=== PATIENT | male | born 1950 | race Caucasian/White ===

== ENCOUNTER 2017-02-25 09:51 | Day surgery (SDC) | payer OTHER ==
--- NOTE | 2017-02-21 00:37 | GHP ---
[f rep st] PREOP HISTORY AND PHYSICAL DATE OF ADMISSION: 02/25/2017 COMPLAINT: Left knee pain. HISTORY OF PRESENT ILLNESS: The patient is a 66-year-old male, who was walking on a treadmill when he felt a pop within his knee. He has had a great deal of pain afterwards, trying to bear weight. It has been inhibiting his ability to exercise and do activities of daily living. ALLERGIES: Include penicillin. CURRENT MEDICATION: Include amlodipine, low-dose aspirin, hydrochlorothiazide, lisinopril, Prilosec , and sertraline. PRIOR MEDICAL PROBLEMS: Include asthma, high cholesterol, reflux, gout, hepatitis, hypertension and sleep apnea. PRIOR SURGERY: Includes a cholecystectomy and a vasectomy. SOCIAL HISTORY: He is a former smoker, and consumes no alcohol. PHYSICAL EXAM: HEENT: Pupils equal, round, and reactive to light. CHEST: Clear to auscultation. HEART: Regular rate and rhythm. ABDOMEN: Soft and nontender. EXTREMITIES: His left knee has a moderate effusion noted to the knee. He has tenderness to the medial joint line but not the lateral joint line. The knee is stable throughout. ASSESSMENT AND PLAN: Patient is status post left knee medial meniscal tear. Risks and benefits of surgery, as always, were discussed with the patient. He is willing to proceed. He will therefore b e brought to the operating room, where he will undergo a left knee arthroscopy. /[id number]/MODL
--- NOTE | 2017-02-25 07:15 | PDHPUP ---
History & Physical Update H&P update statement: This history and physical update is based on an assessment of the patient which was completed after admission or registration (within 24 hours), but prior to the surgery/procedure. H&P update: H&P reviewed & patient examined, no change in patient's condition since H&P completed
[~2017-02-25 09:51] MED LIST: BUPIVACAINE/EPI 0.5% 30 ML SDV ONE; VANCOMYCIN 2 GM in D5W 500 ML IV ONE; VANCOMYCIN PHARMACY TO DOSE MISC ONE
[2017-02-25] MEDS ORDERED: LR 1,000 ML IV ONE (10:18)
[2017-02-25] MEDS ORDERED: LIDOCAINE 1% 2 ML INJ ID PRN (10:18)
[2017-02-25] MEDS ORDERED: MIDAZOLAM 2 MG/2 ML VIAL IVP ONE (11:01)
--- NOTE | 2017-02-25 11:01 | PDANEPAE ---
ANE History of Present Illness 66 year old male w/ PMHx of HTN, FILIBERTO (on CPAP), Cervical stenosis (w/ right arm weakness), previous Hep. C, GERD and obesity presents for knee arthroscopy w meniscal repair. ANE Past Medical History - Cardiovascular History Hx Hypertension: Yes Hx Arrhythmias: No Hx Chest Pain: No Hx Coronary Artery / Peripheral Vascular Disease: No Hx CHF / Valvular Disease: No Hx Palpitations: No Cardiovascular History Comment: HTN well controlled - Pulmonary History Hx COPD: No Hx Asthma/Reactive Airway Disease: Yes Hx Recent Upper Respiratory Infection: No Hx Oxygen in Use at Home: No Hx Sleep Apnea: Yes Sleep Apnea Screening Result - Last Documented: Positive Pulmonary History Comment: rare use of Albuterol- w/ URI. FILIBERTO uses CPAP. ` - Neurologic History Hx Cerebrovascular Accident: No Hx Seizures: No Hx Dementia: No - Endocrine History Hx Diabetes: No Obesity: yes - Renal History Hx Renal Disorders: No - Liver History Hx Hepatic Disorders: No - Neurological & Psychiatric Hx Hx Neurological and Psychiatric Disorders: Yes Neurological / Psychiatric History Comment: cervical stenosis- weakness R arm. anxiety-on RX - Cancer History Hx Cancer: No - Congenital Disorder History Hx Congenital Disorders: No - GI History Hx Gastrointestinal Disorders: Yes Gastrointestinal History Comment: GERD - Other Health History Other Health History: L knee meniscal tear - Chronic Pain History Chronic Pain: Yes (L knee) - Surgical History Prior Surgeries: tonsillectomy age 5. varicocelectomy 70's. hydrocelectomy. vocal cord polyp excision. Lap jaylen converted to open ANE Review of Systems - Exercise capacity METS (RN): 4 METS ANE Patient History - Allergies Allergies/Adverse Reactions: Penicillins Allergy (Verified 02/17/17 11:43) Rash - Home Medications Home medications: home medication list seen and reviewed Home Medications: Albuterol Sulfate 3 ml IH PRN 01/05/12 [Last Taken 01/28/17] Sertraline HCl [Zoloft 20mg/ml oral liquid] 50 mg PO 01/05/12 [Last Taken 06:00] Amlodipine Besylate 02/17/17 [Last Taken 02/25/17 06:00] Aspirin EC 81 mg (*) 02/17/17 [Last Taken 02/16/17 20:00] LISINOPRIL/HYDROCHLOROTHIAZIDE 02/17/17 [Last Taken 02/24/17 07:00] Lisinopril 02/17/17 [Last Taken 02/25/17 06:00] PRILOSEC 02/17/17 [Last Taken 02/24/17 20:00] Wellbutrin Sr 02/17/17 [Last Taken 02/25/17 06:00] ZYRTEC 02/17/17 [Last Taken 02/25/17 06:00] - NPO status NPO Since - Liquids (Date): 02/24/17 NPO Since - Liquids (Time): 20:20 NPO Since - Solids (Date): 02/24/17 NPO Since - Solids (Time): 20:00 - Anes Hx Anes Hx: no prior problems - Smoking Hx Smoking Status: Former smoker - Family Anes Hx Family Anes Hx: neg - N/A ANE Labs/Vital Signs - Vital Signs Vital Signs: reviewed preoperatively; see RN documention for details Blood Pressure: 160/84 Heart Rate: 86 Respiratory Rate: 20 O2 Sat (%): 95 Height: 175.26 cm Weight: 127.006 kg ANE Physical Exam - Airway Neck exam: FROM Mallampati Score: Class 2 Mouth exam: poor dentition - Pulmonary Pulmonary: no respiratory distress - Cardiovascular Cardiovascular: regular rate and rhythym - ASA Status ASA Status: III ANE Anesthesia Plan Anesthesia Plan: general endotracheal anesthesia, GA w LMA
[2017-02-25] MEDS ORDERED: fentaNYL 100 MCG/2 ML INJ ONE ×4 (12:31→14:21)
[2017-02-25] MEDS ORDERED: PROPOFOL 200 MG/20 ML VIAL ONE ×2 (12:31→13:04)
[2017-02-25] MEDS ORDERED: DEXAMETHASONE 4 MG/ML VIAL ONE (12:47)
[2017-02-25] MEDS ORDERED: ONDANSETRON 4 MG/2 ML VIAL ONE (12:47)
[2017-02-25] MEDS ORDERED: NALOXONE HCL 0.4 MG/ML INJ IVP PRN ×2 (12:56→15:33)
[2017-02-25] MEDS ORDERED: OXYCODONE/APAP 5/325 TAB PO PRN (12:56)
[2017-02-25] MEDS ORDERED: ONDANSETRON 4 MG/2 ML VIAL IVP PRN (12:56)
--- NOTE | 2017-02-25 13:36 | POSTOPPROG ---
Post Op Note Date of Operation: 02/25/17 Surgeon: Italia Lal Anesthesia: LMA Pre-op Diagnosis: l mmt/lmt/oa Procedure: l knee scope with partial med/lat menisectomy with chondroplasty Inf/Abcess present in the surg proc area at time of surgery?: No Depth: Deep Incisional (Fascial) EBL: Minimal
[2017-02-25] MEDS ORDERED: PHARMACY PAIN CONSULT 1 EA MISC PRN (13:37)
[2017-02-25] MEDS ORDERED: PROMETHAZINE HCL 25 MG SUPPR PR PRN (13:37)
[2017-02-25] MEDS ORDERED: MAGNESIUM HYDROXIDE 30 ML UDCUP PO PRN (13:37)
[2017-02-25] MEDS ORDERED: LACTULOSE 20 GM/30 ML UDCUP PO PRN (13:37)
[2017-02-25] MEDS ORDERED: diphenhydrAMINE 25 MG CAP PO PRN (13:37)
[2017-02-25] MEDS ORDERED: CYCLOBENZAPRINE 10 MG TAB PO PRN (13:37)
[2017-02-25] MEDS ORDERED: BISACODYL 10 MG SUPP PR PRN (13:37)
[2017-02-25] MEDS ORDERED: TEMAZEPAM 15 MG CAP PO PRN (13:37)
[2017-02-25] MEDS ORDERED: oxyCODONE IR 5 MG TAB PO PRN (13:37)
[2017-02-25] MEDS ORDERED: PROMETHAZINE HCL 25 MG/ML INJ IVP PRN (13:37)
[2017-02-25] MEDS ORDERED: DIPHENOXYLATE/ATROPINE LOMOTIL 1 TAB PO PRN (13:37)
[2017-02-25] MEDS ORDERED: POLYETHYLENE GLYCOL 3350 17 GM PKT PO PRN (13:37)
[2017-02-25] MEDS ORDERED: METOCLOPRAMIDE 10 MG/2 ML VIAL IVP PRN (13:37)
[2017-02-25] MEDS: fentaNYL 100 MCG/2 ML INJ IVP PRN ×4 (13:56→14:37)
[2017-02-25] MEDS ORDERED: LR 1,000 ML IV SCH (14:00)
--- NOTE | 2017-02-25 15:07 | GOP ---
[f rep st] OPERATIVE REPORT DATE OF OPERATION: 02/25/2017 SURGEON: Italia Lal MD ANESTHESIA: LMA. PREOPERATIVE DIAGNOSIS: Left knee medial meniscal tear with osteoarthritis. POSTOPERATIVE DIAGNOSIS: Left knee medial meniscal tear with osteoarthritis, with lateral meniscal tear, grade 3-4 chondral changes to the patella, and grade 3 chondral changes to the medial compartment. PROCEDURE PERFORMED: Left knee arthroscopy with partial medial and partial lateral meniscectomy, with chondroplasty of the medial and patellofemoral compartments. FINDINGS: INDICATIONS: This is a 66-year-old male with a several-month history of left knee pain worsening with use and with time after a twisting incident across it. He had no significant pain prior to this. MRI exams revealed medial meniscal tear with some osteoarthritic changes. He wishes to have surgery in order to resolve the problem. DESCRIPTION OF PROCEDURE: Patient brought to the operating room after the left side had been identified as the correct side by the patient, nurse and physician. Once in the operating room, he was placed under general anesthesia using an LMA. Once asleep, a tourniquet placed around the upper portion of the left thigh, and both legs were placed in appropriate leg gutierrez. Left lower extremity was then sterilely prepped and draped in the usual fashion using a GSI solution. Once prepped and draped, limb was exsanguinated, tourniquet inflated to 300 mmHg. Incision was made in the superomedial portion of the knee with an outflow trocar induced without difficulty. A 2nd incision was made lateral to the patellar tendon, between the inferior pole of the patella and the tibial plateau, with a camera introduced without difficulty. Inspection of the joint revealed no loose bodies in the suprapatellar pouch, in the medial and lateral gutter. There were noted to be grade 3-4 chondral changes to the patella with no significant chondral changes noted of the trochlea. Further inspection revealed the ACL ligament to be intact, now with an abundant amount of synovium in the anterior portion, ending in a tethered Hoffa pad. Inspection of the medial compartment revealed tearing of the posterior horn of the medial meniscus extending all the way toward the root, along with grade 3 chondral changes to the femur and tibia. Inspection of the lateral compartment revealed some tearing at the root of the lateral meniscus with minor grade 2 chondral changes noted. Therefore, a third incision was made medial to the patellar tendon between the inferior pole of the patella and the tibial plateau, and alternating, using a straight biter and then a 4.0 mm smooth shaver was used to debride both tears of the medial and lateral meniscus , remove the loose fragments from the medial compartment and patellofemoral compartment, and remove the abundant amount of synovium at the anterior portion of the knee. Once finished, all instruments were removed from the knee with 30 cc of Marcaine infused in the knee joint. The 3 portal sites were closed using 3-0 nylon suture in a [id number] type stitch. The wounds were dressed with Xeroform, 4 x 4, wrapped in Webril. Tourniquet was deflated at 27 minutes. Leg was completely undraped in the operating room, taken out of its leg gutierrez and tourniquet was removed from the thigh, and an Chance wrap placed around the knee. The right leg was taken out of its leg gutierrez. He was placed supine. He was woken up, extubated, transferred onto a stretcher, and sent to recovery room in good condition. TOURNIQUET TIME: 27 minutes. /[id number]/MODL MTDD
[2017-02-25] MEDS ORDERED: oxyCODONE IR 5 MG TAB ONE (15:18)
--- NOTE | 2017-02-25 17:00 | POSTANESTH ---
Post Anesthetic Evaluation Cardiovascular Status: Normal, Stable Respiratory Status: Normal, Stable Level of Consciousness/Mental Status: Can Participate in Eval Pain Control: Adequate, Prn Tx Ordered Nausea/Vomiting Control: Adequate, Prn Tx Ordered Complications Possibly Related to Anesthesia: None Noted
[2017-02-25] MEDS ORDERED: ACETAMINOPHEN 325 MG TAB PO SCH (18:00)
[2017-02-25 18:36] VITALS: BP 105/61; PULSE 78; RESP 17; TEMP 98.1; O2SAT 91
[2017-02-25] MEDS ORDERED: SENNOSIDES/DOCUSATE SODIUM TAB PO SCH (21:00)
[2017-02-25] MEDS ORDERED: FAMOTIDINE 20 MG TAB PO SCH (21:00)
[2017-02-25] MEDS ORDERED: ASPIRIN 325 MG TAB PO SCH (21:00)
== END 2017-02-25 18:17 | disposition home or self-care (01) ==
LOC: FSGY 09:51
PROVIDERS: ATTEND Orthopaedic Surgery
PROC: 0SBD4ZZ Excision of Left Knee Joint, Percutaneous Endoscopic Approach (ICD-10-PCS; principal; 2017-02-25 11:30)
DX: S83.242A Other tear of medial meniscus, current injury, left knee, initial encounter (principal); S83.282A Other tear of lateral meniscus, current injury, left knee, initial encounter; M24.10 Other articular cartilage disorders, unspecified site; M17.12 Unilateral primary osteoarthritis, left knee; I10 Essential (primary) hypertension; K21.9 Gastro-esophageal reflux disease without esophagitis; J45.909 Unspecified asthma, uncomplicated; G47.33 Obstructive sleep apnea (adult) (pediatric); M10.9 Gout, unspecified; Z87.891 Personal history of nicotine dependence; Z88.0 Allergy status to penicillin; X50.1XXA Overexertion from prolonged static or awkward postures, initial encounter; Y93.A1 Activity, exercise machines primarily for cardiorespiratory conditioning
CPT/HCPCS: J1100; J2250; J2405; J2704; J3010; J3370

== ENCOUNTER → 2017-05-16 | Outpatient (CLI) | payer OTHER | LOC: CIMAGING 09:33 → EDSTATUS 09:41 → CIMAGING 09:42 | PROVIDERS: ATTEND Family Medicine | DX: J45.901 Unspecified asthma with (acute) exacerbation (principal); I27.20 Pulmonary hypertension, unspecified | CPT/HCPCS: 71020-PO ==

== ENCOUNTER → 2017-06-30 | Outpatient (CLI) | payer OTHER | LOC: BRMIMAGING 11:07 | PROVIDERS: ATTEND Internal Medicine Cardiovascular Disease | DX: I50.9 Heart failure, unspecified (principal); I10 Essential (primary) hypertension ==

== ENCOUNTER → 2017-07-23 | Outpatient (CLI) | payer OTHER, MEDICARE | LOC: BHFA 13:00 | PROVIDERS: ATTEND Internal Medicine Cardiovascular Disease | DX: I50.9 Heart failure, unspecified (principal); I10 Essential (primary) hypertension | CPT/HCPCS: 78452; 93017; A9500; J2785 ==

== ENCOUNTER 2018-03-18 17:01 | Inpatient (IN) | payer OTHER, MEDICARE ==
[2018-03-18] MEDS ORDERED: methylPREDNISolone SOD SUCC 125 MG/2 ML VIAL IVP ONE ×2 (17:12→17:17)
[2018-03-18] MEDS ORDERED: IPRATROPIUM/ALBUTEROL 3 ML DEYVIAL IH ONE ×2 (17:12→19:22)
[2018-03-18] MEDS ORDERED: AZITHROMYCIN IV 500 MG in NS 250 ML IV ONE (17:14)
[2018-03-18] MEDS ORDERED: NS 1,000 ML IV ONE (17:14)
--- NOTE | 2018-03-18 17:21 | EDPHY ---
H & P Stated Complaint: sob and fever today Time Seen by Provider: 03/18/18 17:07 HPI/ROS: CHIEF COMPLAINT: Fever and difficulty breathing History by patient HISTORY OF PRESENT ILLNESS: 67-year-old man with a history of hypertension and asthma presents complaining of 24 hr of fever and cough. Patient had a temperature up to 103 at home. He has been coughing up yellow sputum and today began wheezing. He has not tried using his inhalers. He gets short of breath whenever he tries to do anything like walk. He has some associated pleuritic chest pain. He has had no nausea or vomiting. His last steroid use was about a month ago. He was exposed to a grandchild with cold. Patient quit smoking 20 years ago. He denies any leg pain or swelling. REVIEW OF SYSTEMS: Limited to the acuity of the patient's presentation Source: Patient - Medical/Surgical History Hx Asthma: Yes Hx Chronic Respiratory Disease: No Hx Diabetes: No Hx Cardiac Disease: Yes Other PMH: asthma - Social History Smoking Status: Former smoker - Physical Exam Exam: General Appearance: Alert, morbidly obese, speaking 3-5 word sentences. Head: normocephalic, atraumatic Eyes: Pupils equal and round, reactive to light, no pallor or injection. Extraocular movements intact Mouth: Mucous membranes moist. Respiratory: Increased effort, lungs diffuse wheezes, no chest wall tenderness Cardiovascular: Regular rate and rhythm. S1, S2, no murmurs, gallops or rubs appreciated Gastrointestinal: Abdomen is soft and nontender, no masses, bowel sounds normal. Back: No CVA tenderness, no bony tenderness Neurological: Awake, alert and oriented x 3, no pronator drift, normal gait, no pronator drift Skin: Warm and dry, no rashes. Musculoskeletal: No deformities or tenderness. Full range of motion Extremities: 1+ bilateral pitting edema, no tenderness, DP2+ bilat Psychiatric: Patient has normal affect, there is no agitation. Constitutional: Initial Vital Signs Temperature (C) 38.4 C H 03/18/18 17:09 Heart Rate 135 H 03/18/18 17:09 Respiratory Rate 24 H 03/18/18 17:09 Blood Pressure 131/68 H 03/18/18 17:09 O2 Sat (%) 92 03/18/18 17:09 O2 Delivery Mode Room Air O2 (L/minute) 3 Allergies/Adverse Reactions: Penicillins Allergy (Verified 03/18/18 17:11) Rash Home Medications: Medication Instructions Recorded Albuterol Sulfate 3 ml IH PRN 01/05/12 Sertraline HCl [Zoloft 20mg/ml 50 mg PO 01/05/12 oral liquid] Amlodipine Besylate 02/17/17 Aspirin EC 81 mg (*) 02/17/17 LISINOPRIL/HYDROCHLOROTHIAZIDE 02/17/17 Lisinopril 02/17/17 PRILOSEC 02/17/17 Wellbutrin Sr 02/17/17 ZYRTEC 02/17/17 Medical Decision Making - Diagnostics EKG Interpretation: Sinus tachycardia at a rate of 137 with normal axis normal intervals Q-waves in the anterior leads and diffusely flattened T-waves, both new from 2009. . Impression: Abnormal EKG. Imaging Results: Imaging Impressions Chest X-Ray 03/18/18 17:15 Impression: No pneumonia identified. ED Course/Re-evaluation: 67-year-old man with history of asthma and hypertension presents with fever and shortness of breath and meets criteria for sepsis. Patient was placed on a lieutenant firefighter, given an DuoNeb, blood cultures were obtained he was empirically started on ceftriaxone and azithromycin to cover for pneumonia. He was given a L of normal saline bolus. Labs including were drawn. Patient had an elevated lactate confirming clinical suspicion of sepsis. Patient had a little subjective improvement after 2 nebulizer treatments and his oxygen saturation improved slightly but he continued to have persistent wheezing. Portable chest x-ray showed no obvious infiltrate. Patient was given a 2nd L of normal saline. Because of the patient's EKG changes he was given 325 mg of aspirin and a troponin was added to the labs. Troponin was negative. Patient states that he had a cardiac workup sometime in the past year with [facility] including a negative stress test. I discussed the case with the hospitalist geothermal production manager. While awaiting transfer the patient developed an episode of what he described as sharp chest pain and a repeat ECG was done. This showed sinus tachycardia at a rate of 120 but is otherwise unchanged from prior. By the time I re- evaluated the patient his symptoms had resolved. Patient received a total of 30 cc/kilos of normal saline which is equal to almost 4 L and his heart rate has improved though his systolic blood pressure did come down to 106 and his oxygen saturation is 95% on 3 L oximizer mask. He continued to have some wheezes and patient was given yet another DuoNeb. Flu swab was negative. Patient did spike a fever up to 39 while in the ED and was given Tylenol. Total critical care time was 75 min exclusive of procedures and included multiple re-evaluations of the patient. - Data Points Laboratory Results: Laboratory Results 03/18/18 17:33 03/18/18 03/18/18 03/18/18 17:46 17:43 17:42 WBC RBC Hgb Hct MCV MCH MCHC RDW Plt Count MPV Neut % (Auto) Lymph % (Auto) [place] % (Auto) Eos % (Auto) Baso % (Auto) Nucleat RBC Rel Count Absolute Neuts (auto) Absolute Lymphs (auto) Absolute Monos (auto) Absolute Eos (auto) Absolute Basos (auto) Absolute Nucleated RBC Immature Gran % Immature Gran # POC Sodium 139 mEq/L mEq/L (135-145) POC Potassium 3.8 mEq/L mEq/L (3.3-5.0) POC Chloride 102.0 mEq/L mEq/L (97-110) POC Total CO2 25 mEq/L mEq/L (22-31) POC BUN 15 mg/dL mg/dL (7-23) POC Creatinine 1.0 mg/dL mg/dL (0.7-1.3) POC Glucose 143 mg/dL H mg/dL (70-100) POC Lactic Acid Michael 2.6 mmol/L H mmol/L (0.7-2.1) POC Calcium 9.4 mg/dL mg/dL (8.5-10.4) POC Total Bilirubin 0.6 mg/dL mg/dL (0.1-1.4) POC AST 20 IU/L IU/L (17-59) POC ALT 21 IU/L IU/L (21-72) POC Alk Phosphatase 77 IU/L IU/L (38-126) POC Troponin I 0.00 ng/mL ng/mL (0.00-0.08) POC Total Protein 6.9 g/dL g/dL (6.3-8.2) POC Albumin 3.7 g/dL g/dL (3.5-5.0) 03/18/18 17:33 WBC 15.69 10^3/uL H 10^3/uL (3.80-9.50) RBC 5.19 10^6/uL 10^6/uL (4.40-6.38) Hgb 12.5 g/dL L g/dL (13.7-17.5) Hct 39.1 % L % (40.0-51.0) MCV 75.3 fL L fL (81.5-99.8) MCH 24.1 pg L pg (27.9-34.1) MCHC 32.0 g/dL L g/dL (32.4-36.7) RDW 16.6 % H % (11.5-15.2) Plt Count 316 10^3/uL 10^3/uL (150-400) MPV 10.3 fL fL (8.7-11.7) Neut % (Auto) 78.6 % H % (39.3-74.2) Lymph % (Auto) 11.9 % L % (15.0-45.0) [place] % (Auto) 6.6 % % (4.5-13.0) Eos % (Auto) 1.8 % % (0.6-7.6) Baso % (Auto) 0.2 % L % (0.3-1.7) Nucleat RBC Rel Count 0.0 % % (0.0-0.2) Absolute Neuts (auto) 12.33 10^3/uL H 10^3/uL (1.70-6.50) Absolute Lymphs (auto) 1.87 10^3/uL 10^3/uL (1.00-3.00) Absolute Monos (auto) 1.04 10^3/uL H 10^3/uL (0.30-0.80) Absolute Eos (auto) 0.28 10^3/uL 10^3/uL (0.03-0.40) Absolute Basos (auto) 0.03 10^3/uL 10^3/uL (0.02-0.10) Absolute Nucleated RBC 0.00 10^3/uL 10^3/uL (0-0.01) Immature Gran % 0.9 % % (0.0-1.1) Immature Gran # 0.14 10^3/uL H 10^3/uL (0.00-0.10) POC Sodium POC Potassium POC Chloride POC Total CO2 POC BUN POC Creatinine POC Glucose POC Lactic Acid Michael POC Calcium POC Total Bilirubin POC AST POC ALT POC Alk Phosphatase POC Troponin I POC Total Protein POC Albumin Medications Given: Discontinued Medications Acetaminophen (Tylenol) 1,000 mg PO EDNOW ONE Stop: 03/18/18 18:33 Last Admin: 03/18/18 18:36 Dose: 1,000 mg Albuterol (Proventil Neb) 3 ml IH EDNOW ONE Stop: 03/18/18 17:35 Last Admin: 03/18/18 17:35 Dose: 3 ml Albuterol (Proventil Neb) 3 ml IH EDNOW ONE Stop: 03/18/18 18:12 Last Admin: 03/18/18 18:12 Dose: 3 ml Albuterol/Ipratropium (Duoneb) 3 ml IH EDNOW ONE Stop: 03/18/18 17:13 Last Admin: 03/18/18 17:15 Dose: 3 ml Albuterol/Ipratropium (Duoneb) 3 ml IH EDNOW ONE Stop: 03/18/18 19:23 Last Admin: 03/18/18 19:26 Dose: 3 ml Aspirin (Aspirin) 324 mg PO EDNOW ONE Stop: 03/18/18 17:35 Last Admin: 03/18/18 17:37 Dose: 324 mg Azithromycin 500 mg/ Sodium (Chloride) 255 mls @ 255 mls/hr IV EDNOW ONE PRN Reason: Protocol Stop: 03/18/18 18:13 Last Admin: 03/18/18 17:50 Dose: 255 mls Ceftriaxone Sodium/Dextrose (Rocephin 1 Gm (Premix)) 50 mls @ 100 mls/hr IV EDNOW ONE PRN Reason: Protocol Stop: 03/18/18 17:43 Last Admin: 03/18/18 17:35 Dose: 50 mls Sodium Chloride (Ns) 1,000 mls @ 0 mls/hr IV ONCE ONE; Wide Open PRN Reason: Protocol Stop: 03/18/18 17:15 Last Admin: 03/18/18 17:35 Dose: 1,000 mls Sodium Chloride (Ns) 3,900 mls @ 7,800 mls/hr 30 ml/kg infuse over 30 min ( 3900 ml) IV EDNOW ONE PRN Reason: Protocol Stop: 03/18/18 18:49 Last Admin: 03/18/18 19:31 Dose: 3,900 mls Methylprednisolone Sodium Succinate (Solu-Medrol) 125 mg IVP EDNOW ONE Stop: 03/18/18 17:13 Last Admin: 03/18/18 17:38 Dose: 125 mg Methylprednisolone Sodium Succinate (Solu-Medrol) 125 mg IVP EDNOW ONE Stop: 03/18/18 17:18 Last Admin: 03/18/18 17:21 Dose: Not Given Point of Care Test Results: Chemistry 03/18/18 03/18/18 17:43 17:42 POC Sodium 139 mEq/L mEq/L (135-145) POC Potassium 3.8 mEq/L mEq/L (3.3-5.0) POC Chloride 102.0 mEq/L mEq/L (97-110) POC Total CO2 25 mEq/L mEq/L (22-31) POC BUN 15 mg/dL mg/dL (7-23) POC Creatinine 1.0 mg/dL mg/dL (0.7-1.3) POC Glucose 143 mg/dL H mg/dL (70-100) POC Calcium 9.4 mg/dL mg/dL (8.5-10.4) POC Total Bilirubin 0.6 mg/dL mg/dL (0.1-1.4) POC AST 20 IU/L IU/L (17-59) POC ALT 21 IU/L IU/L (21-72) POC Alk Phosphatase 77 IU/L IU/L (38-126) POC Troponin I 0.00 ng/mL ng/mL (0.00-0.08) POC Total Protein 6.9 g/dL g/dL (6.3-8.2) POC Albumin 3.7 g/dL g/dL (3.5-5.0) Blood Gas/Lactic Acid-Venous 03/18/18 17:46 POC Lactic Acid Michael 2.6 mmol/L H mmol/L (0.7-2.1) Departure - Departure Disposition: [facility] Acute Clinical Impression: Sepsis Qualifiers: Sepsis type: sepsis due to unspecified organism Qualified Code(s): A41.9 - Sepsis, unspecified organism Acute asthma exacerbation Qualifiers: Asthma severity: moderate Asthma persistence: unspecified Qualified Code(s): J45.901 - Unspecified asthma with (acute) exacerbation Condition: Fair
[2018-03-18] MEDS ORDERED: ALBUTEROL 3 ML DEYVIAL ONE (17:31)
[2018-03-18] MEDS ORDERED: ALBUTEROL 3 ML DEYVIAL IH ONE ×2 (17:34→18:11)
[2018-03-18] MEDS ORDERED: ASPIRIN 81 MG CHEWABLE TAB PO ONE (17:34)
[2018-03-18] MEDS ORDERED: NS 3,900 ML IV ONE ×2 (18:20→21:06)
[2018-03-18] MEDS ORDERED: ACETAMINOPHEN 500 MG TAB PO ONE (18:32)
[2018-03-18 19:15] LABS: PLATELET COUNT 316 10^3/uL (150-400)
[2018-03-18] MEDS ORDERED: HYDROCODONE/APAP 5/325 TAB PO PRN (21:03)
[2018-03-18] MEDS ORDERED: ACETAMINOPHEN 325 MG TAB PO PRN (21:03)
[2018-03-18] MEDS ORDERED: ONDANSETRON DISINTEGRATING 4 MG TAB PO PRN (21:03)
[2018-03-18] MEDS ORDERED: ONDANSETRON 4 MG/2 ML VIAL IVP PRN (21:03)
[2018-03-18] MEDS ORDERED: PROMETHAZINE HCL 25 MG/ML INJ IVP PRN (21:03)
[2018-03-18] MEDS ORDERED: HYDROmorphONE/DILAUDID 1 MG/ML INJ IVP PRN (21:03)
[2018-03-18] MEDS ORDERED: CETIRIZINE 10 MG TAB PO PRN (21:10)
--- NOTE | 2018-03-18 21:47 | PDGENHP ---
History and Physical - Chief Complaint fevers, wheeze, cough - History of Present Illness 67 yo M with PMH of reportedly asthma presenting with 2 days of productive cough , fever and sinus drainage. He notes he was around his grandson who was also sick before he developed these sxs. He was having a lot of sinus drainage and yellow sputum production yesterday, today less productive but still with a lot of cough, fever to 103 and generalized malaise. He has not had much to eat or drink all day today, he has not urinated in many hours. He notes that he was having significantly more trouble breathing earlier when at urgent care and now feels a bit better though still with wheeze. He did have a sore throat that seems to have now resolved. He denies urinary issues, rash, GI complaints. He has never felt this sick in the past that he can recall. History Information - Allergies/Home Medication List Allergies/Adverse Reactions: Penicillins Allergy (Verified 03/18/18 21:11) Rash Home Medications: Albuterol Sulfate [ALBUTEROL SULFATE 1.25 MG/3 ML] 1.25 mg IH QID PRN 03/18/18 [ Last Taken 03/18/18 16:00] Albuterol [Proventil Inhaler HFA (*)] 1 - 2 puffs IH Q4H PRN 03/18/18 [Last Taken 2 Weeks Ago ~03/04/18] Aspirin EC [Aspirin EC 81 mg (*)] 81 mg PO DAILY 03/18/18 [Last Taken 03/17/18] Atorvastatin Calcium [Lipitor 10 mg (*)] 10 mg PO HS 03/18/18 [Last Taken ] Cetirizine [ZyrTEC 10 mg (*)] 10 mg PO DAILY PRN 03/18/18 [Last Taken 03/18/18] Cholecalciferol Vit D3 [Vitamin D3 (*)] 1,000 units PO DAILY 03/18/18 [Last Taken 03/18/18] Esomeprazole Magnesium [Nexium] 20 mg PO DAILY 03/18/18 [Last Taken 03/18/18] Lisinopril [Zestril 20 mg (*)] 20 mg PO HS 03/18/18 [Last Taken 03/17/18] Lisinopril/Hydrochlorothiazide [Zestoretic 20-25 mg Tablet] 1 each PO DAILY [Last Taken 03/18/18] Montelukast Sodium [Singulair 10 mg (*)] 10 mg PO HS 03/18/18 [Last Taken ] Multivitamins [Multivitamin (*)] 1 each PO DAILY 03/18/18 [Last Taken 03/18/18] Sertraline HCl [Zoloft 50mg (*)] 50 mg PO DAILY 03/18/18 [Last Taken 03/18/18] amLODIPine BESYLATE [Norvasc 10 mg (*)] 10 mg PO DAILY 03/18/18 [Last Taken ] I have personally reviewed and updated: family history, medical history, social history, surgical history - Past Medical History asthma, hypertension, hyperlipidemia Additional medical history: cervical radiculopathy - Surgical History Reports: cholecystectomy Additional surgical history: varicocele surgery. knee surgery. nasal septal reconstruction - Family History Positive for: non-pertinent - Social History Smoking Status: Former smoker (prior 60-90 pack year smoking history) Alcohol Use: Occasionally Drug Use: None Additional social history: , originally from the [place] Review of Systems Review of Systems: ROS: 10pt was reviewed & negative except for what was stated in HPI & below Physical Exam Physical Exam: Temp Pulse Resp BP Pulse Ox 37.5 C 116 H 18 129/52 H 94 03/18/18 20:09 03/18/18 20:09 03/18/18 20:09 03/18/18 20:09 03/18/18 20:09 O2 (L/minute) 3 Constitutional: obese, uncomfortable Eyes: PERRL, anicteric sclera Ears, Nose, Mouth, Throat: moist mucous membranes, hearing normal Cardiovascular: no murmur, rub, or gallop, tachycardia, edema Respiratory: reduced air movement, expiratory wheeze, respiratory distress Gastrointestinal: normoactive bowel sounds, soft, non-tender abdomen Genitourinary: no bladder tenderness Skin: warm, normal color Musculoskeletal: full muscle strength Neurologic: AAOx3 Psychiatric: interacting appropriately, not anxious, not encephalopathic Lab Data & Imaging Review 03/18/18 17:33 WBC 15.69 10^3/uL (3.80-9.50) H 03/18/18 17:33 RBC 5.19 10^6/uL (4.40-6.38) 03/18/18 17:33 Hgb 12.5 g/dL (13.7-17.5) L 03/18/18 17:33 Hct 39.1 % (40.0-51.0) L 03/18/18 17:33 MCV 75.3 fL (81.5-99.8) L 03/18/18 17:33 MCH 24.1 pg (27.9-34.1) L 03/18/18 17:33 MCHC 32.0 g/dL (32.4-36.7) L 03/18/18 17:33 RDW 16.6 % (11.5-15.2) H 03/18/18 17:33 Plt Count 316 10^3/uL (150-400) 03/18/18 17:33 MPV 10.3 fL (8.7-11.7) 03/18/18 17:33 Neut % (Auto) 78.6 % (39.3-74.2) H 03/18/18 17:33 Lymph % (Auto) 11.9 % (15.0-45.0) L 03/18/18 17:33 Park % (Auto) 6.6 % (4.5-13.0) 03/18/18 17:33 Eos % (Auto) 1.8 % (0.6-7.6) 03/18/18 17:33 Baso % (Auto) 0.2 % (0.3-1.7) L 03/18/18 17: Nucleat RBC Rel Count 0.0 % (0.0-0.2) 03/18/18 17:33 Absolute Neuts (auto) 12.33 10^3/uL (1.70-6.50) H 03/18/18 17:33 Absolute Lymphs (auto) 1.87 10^3/uL (1.00-3.00) 03/18/18 17:33 Absolute Monos (auto) 1.04 10^3/uL (0.30-0.80) H 03/18/18 17:33 Absolute Eos (auto) 0.28 10^3/uL (0.03-0.40) 03/18/18 17:33 Absolute Basos (auto) 0.03 10^3/uL (0.02-0.10) 03/18/18 17:33 Absolute Nucleated RBC 0.00 10^3/uL (0-0.01) 03/18/18 17:33 Immature Gran % 0.9 % (0.0-1.1) 03/18/18 17:33 Immature Gran # 0.14 10^3/uL (0.00-0.10) H 03/18/18 17:33 POC Sodium 139 mEq/L (135-145) 03/18/18 17:42 POC Potassium 3.8 mEq/L (3.3-5.0) 03/18/18 17:42 POC Chloride 102.0 mEq/L (97-110) 03/18/18 17:42 POC Total CO2 25 mEq/L (22-31) 03/18/18 17:42 POC BUN 15 mg/dL (7-23) 03/18/18 17:42 POC Creatinine 1.0 mg/dL (0.7-1.3) 03/18/18 17:42 POC Glucose 143 mg/dL (70-100) H 03/18/18 17:42 POC Lactic Acid Michael 3.4 mmol/L (0.7-2.1) H D 03/18/18 20:01 POC Calcium 9.4 mg/dL (8.5-10.4) 03/18/18 17:42 POC Total Bilirubin 0.6 mg/dL (0.1-1.4) 03/18/18 17:42 POC AST 20 IU/L (17-59) 03/18/18 17:42 POC ALT 21 IU/L (21-72) 03/18/18 17:42 POC Alk Phosphatase 77 IU/L (38-126) 03/18/18 17:42 POC Troponin I 0.00 ng/mL (0.00-0.08) 03/18/18 17:43 POC Total Protein 6.9 g/dL (6.3-8.2) 03/18/18 17:42 POC Albumin 3.7 g/dL (3.5-5.0) 03/18/18 17:42 Visualized and Interpreted Chest x-ray results: Yes Chest X-Ray results: no infiltrate Visualized and Interpreted EKG results: Yes EKG additional interpertation: sinus tachycardia Assessment & Plan Assessment: Acute asthma exacerbation (Acute) Sepsis (Acute) 67 yo M with asthma versus more likely COPD presenting with sepsis and acute respiratory failure # sepsis/severe: meeting sirs with elevated wbc, fever, tachycardia and with lactate increasing (now 3.4) after stay in UC however suspect he has been insufficiently volume resuscitated, will start sepsis protocol with IVF. Source presumed to be respiratory despite lack of PNA on CXR. Will add UA/urine cx, follow blood cultures, get resp viral pcr, procalcitonin and continue ctx/ azithro for now. BP is good and do not think pressors will be needed so long as lactate begins to trend down # acute hypoxic respiratory failure: has been requiring 3 L of o2 to maintain sats in the low 90s, due to asthma/copd exacerbation as next # acute exacerbation of RAD versus COPD: patient reports hx of asthma however given long smoking hx and presentation do suspect COPD at least contributing. Has gotten nebs/solumedrol in ER and will continue, is moving air better at this time. Suspect exacerbation due to next. # pneumonia/bronchopneumonia: not obvious on imaging however this was limited by patients body habitus and given presentation is still suspected, started on ctx/azithro and will repeat cxr in am # htn: will hold lisinopril given bp is currently on the low end without that and that he is not making as much urine # IP status, patient will need > 48 hours stay for eval/mgmt of above Patient new to my care. Old records reviewed and summarized as above. Care plan reviewed with [facility] including plans for abx.
[2018-03-18] MEDS ORDERED: IPRATROPIUM/ALBUTEROL 3 ML DEYVIAL ONE (23:00)
[2018-03-18] MEDS ORDERED: IPRATROPIUM BROMIDE 0.5 MG/2.5 ML DEYVIAL ONE (23:00)
[2018-03-18] MEDS: ALBUTEROL 3 ML DEYVIAL IH PRN (23:10)
[2018-03-18] MEDS: NS 1,000 ML IV SCH (23:27)
[2018-03-19] MEDS: methylPREDNISolone SOD SUCC 125 MG/2 ML VIAL IVP SCH ×4 (00:12→18:25)
[2018-03-19] MEDS: LORazepam 2 MG/ML INJ IVP PRN ×2 (00:15→22:46)
[2018-03-19 03:49] LABS: PLATELET COUNT 268 10^3/uL (150-400)
[2018-03-19] MEDS: IPRATROPIUM/ALBUTEROL 3 ML DEYVIAL IH SCH ×5 (04:42→21:39)
[2018-03-19] MEDS ORDERED: D50W 25 GM/50 ML SYR IVP PRN (08:24)
[2018-03-19] MEDS: ASPIRIN EC 81 MG TAB PO SCH (08:40)
[2018-03-19] MEDS: MULTIVITAMINS 1 EACH TAB PO SCH (08:40)
[2018-03-19] MEDS: PANTOPRAZOLE SODIUM 40 MG TAB PO SCH (08:40)
[2018-03-19] MEDS: SERTRALINE HCL 50 MG TAB PO SCH (08:41)
[2018-03-19] MEDS: CHOLECALCIFEROL VIT D3 1,000 UNITS TAB PO SCH (08:41)
[2018-03-19] MEDS: ENOXAPARIN 40 MG/0.4 ML SYR SC SCH (08:41)
[2018-03-19] MEDS: AZITHROMYCIN IV 500 MG in D5W 250 ML IV SCH (10:00)
--- NOTE | 2018-03-19 10:01 | ASMTCMCOM ---
CM Note CM Note Notes: Patient admitted with an acute asthma exacerbation and sepsis. He will be treated with abx, steroids, and nebulizer treatments. Patient lives with his and is normally independent. No discharge needs identified. Case Management available if this changes. Date Signed: 03/19/2018 10:00 AM Electronically Signed By:Tess Connolly RN
[2018-03-19] MEDS: NS 1,000 ML IV SCH ×2 (11:40→22:47)
[2018-03-19] MEDS: INSULIN LISPRO 100 UNIT/ML SC SCH ×2 (11:41→18:23)
[2018-03-19] MEDS: oxyCODONE IR 5 MG TAB PO PRN ×3 (11:42→20:33)
--- NOTE | 2018-03-19 11:43 | HOSPPROG ---
Hospitalist Progress Note Assessment/Plan: 67 yo M with asthma versus more likely COPD presenting with sepsis and acute respiratory failure # sepsis/severe: meeting sirs with elevated wbc, fever, tachycardia and with lactate increasing initially but now trended down s/p significant volume resuscitation. Source presumed to be respiratory and likely viral given lack of PNA on CXR however elevated prolactin and significant illness on arrival still concerning for concurrent bacterial infection, continue ctx/azithro for now. If cultures remain negative and continues to improve could likely narrow to just atypical coverage in am. # acute hypoxic respiratory failure: has been requiring up to 10L of o2 to maintain sats in the low 90s, due to asthma/copd exacerbation as next, weaning off of o2 today as able # acute exacerbation of RAD versus COPD: patient reports hx of asthma however given long smoking hx and presentation do suspect COPD as well--discussed getting f/u PFTs in the future which he agrees to. Continue scheduled duonebs, prn albuterol nebs, mucinex and steroids--currently on IV steroids but will transition to oral prednisone in the morning. # DM2: new diagnosis with A1c of 7.6, discussed with him at length that diet and exercise will be beneficial but that we should begin metformin at time of dc , covering for now with SSI, more extreme BS elevation in part due to steroids # viral pneumonia/bronchopneumonia: as per problem 1, repeat cxr personally reviewed and no infiltrate noted still, does have rhinovirus on resp pcr, as above continue current abx for now # htn: held bp meds on arrival given low urine output and borderline low bp, bp remains wnl but creeping up, will resume home meds (continue holding second dose of lisinopril/hctz for now) # IP status, patient will need > 48 hours stay for eval/mgmt of above care plan reviewed with Dr. Sanchez and with patients present at bedside. Subjective: patient notes feeling much better today, he still has significant sob however and wheeze, he is coughing but not very productive at the moment Objective: Vital Signs Temp Pulse Resp BP Pulse Ox 37.1 C 110 H 24 H 127/59 H 94 03/19/18 11:31 03/19/18 11:31 03/19/18 11:31 03/19/18 11:31 03/19/18 11:31 Microbiology 03/19/18 00:00 Respiratory Panel (PCR) - Final Nasal, Sinus - Swab Human Rhinovirus/Enterovirus Laboratory Results 03/19/18 03:39 03/19/18 03:39 03/18/18 03/19/18 03/20/18 05:59 05:59 05:59 Intake Total 54619 Output Total 2100 450 Balance 8738 -450 awake alert anicteric op clear mmm rrr no mrg scattered insp/exp wheeze, increased wob soft nt nd no cce warm dry well perfused oriented appropriate ICD10 Worksheet Patient Problems: Problems Problem Status Onset Sepsis Acute Acute asthma exacerbation Acute
--- NOTE | 2018-03-19 12:55 | GCON ---
[f rep st] CONSULTATION INFANTRYMAN CONSULTATION REASON FOR ADMISSION: Viral pneumonitis, acute exacerbation of asthma. Mr. Alvares is a pleasant 67-year-old white male with extensive past medical history including asthma, hypertension, hyperlipi demia. He presented with worsening breathlessness as well as cough. He had recently been around an ill grandchild, and has subsequently developed worsening breathlessness. He also admits to fevers up to 103. He generally did not feel well. He has no nausea, vomiting, or diarrhea, but he has a dimi nished appetite. He subsequently sought medical attention, and was admitted to the step-down unit. In discussion with the patient, he states he feels markedly improved since last night. He is still c oughing and still somewhat breathless, but these symptoms have improved. He denies hemoptysis. Ther e is no chest pain, pleuritic-type chest pain, or anginal equivalent. PAST MEDICAL HISTORY: Again, significant for asthma, hypertension, hyperlipidemia. FAMILY HISTORY: Noncontributory. SOCIAL HISTORY: Previous heavy smoker, up to a 60-90 pack-year, but none in the last several years. No significant alcohol use. Work History: He is retired. He is , has excellent family support. HOME MEDICATIONS: Include albuterol, aspirin, atorvastatin, Zyrtec, vitamin D3, Nexium, Zestril, Sin gulair, Zoloft, Norvasc. REVIEW OF SYSTEMS: 10-point review of systems performed is negative except for what is listed in HPI . PHYSICAL EXAM: VITAL SIGNS: Blood pressure 127, 59, pulse 110, respirations 24, temperature 37.1, o xygen saturation 94% on 3 L. GENERAL: He is a moderately overweight, 67-year-old white male who is resting comfortably on nasal cannula oxygen. HEENT: Eyes: PERRL, EOMI. Throat shows no erythema o r tonsillar hypertrophy. NECK: Supple. There is no cervical adenopathy. HEART: Regular rate and rhythm without murmurs or gallops. LUNGS: Diminished breath sounds in all lung balderas with diffuse wheeze. ABDOMEN: Soft, nontender. Bowel sounds are present in all 4 quadrants. EXTREMITIES: No c lubbing, cyanosis, or edema. LABORATORIES: White count is 14.6, hemoglobin 11, hematocrit 34, platelet count 268. Sodium 141, po tassium 4.2, chloride 111, CO2 is 19, BUN 15, creatinine 0.7, glucose is 223. Chest x-ray reveals diffuse bronchitis. There is some left basilar atelectasis. IMPRESSION: 1. Acute respiratory failure, likely secondary to bronchitis and underlying lung disease. 2. Asthma, query if this is indeed asthma versus chronic obstructive pulmonary disease, given his ex tensive smoking history. 3. Acute bronchitis. 4. Obstructive sleep apnea. 5. Hypertension. 6. Hyperlipidemia. 7. Human rhino virus/enterovirus, upper respiratory tract infection. RECOMMENDATIONS: 1. Agree with current frequent nebulized treatment both albuterol and Atrovent. 2. Oral antibiotics. 3. Supplemental oxygen. 4. Continue continuous positive airway pressure at night. The patient brought his own machine. 5. Intravenous steroids consisting of Solu-Medrol 125 q.6. 6. Early ambulation. 7. Patient is likely stable for discharge to medical/surgical floor. Thank you very much. /[id number]/MODL
--- NOTE | 2018-03-19 13:22 | PDMN ---
Medical Necessity Medical necessity: Pt meets IP criteria per MD & MCG M-160; est los >2 mn for eval/tx of severe sepsis; pt meets SIRS criteria w/elevated WBC, fever, tachycardia & increasing lactate, as well as acute hypoxic respiratory failure & RAD vs COPD exacerbation; source presumed to be respiratory; requiring further workup, close SDU monitoring, IVFs, IV abx & respiratory supportive care; per H&P & order 03/18/18
[2018-03-19] MEDS: ACETYLCYSTEINE 10% IH/PO 4 ML VIAL IH SCH ×2 (13:50→16:42)
[2018-03-19] MEDS: MONTELUKAST SODIUM 10 MG TAB PO SCH (20:35)
[2018-03-19] MEDS: ATORVASTATIN CALCIUM 10 MG TAB PO SCH (20:35)
[2018-03-19] MEDS ORDERED: LISINOPRIL 20 MG TAB PO SCH (21:00)
[2018-03-20] MEDS: ACETYLCYSTEINE 10% IH/PO 4 ML VIAL IH SCH ×2 (04:28→06:15)
[2018-03-20 04:53] LABS: PLATELET COUNT 274 10^3/uL (150-400)
[2018-03-20] MEDS: IPRATROPIUM/ALBUTEROL 3 ML DEYVIAL IH SCH ×4 (05:16→21:34)
[2018-03-20] MEDS: NS 1,000 ML IV SCH (08:21)
[2018-03-20] MEDS: INSULIN LISPRO 100 UNIT/ML SC SCH ×3 (08:26→18:28)
[2018-03-20] MEDS: ENOXAPARIN 40 MG/0.4 ML SYR SC SCH (08:27)
--- NOTE | 2018-03-20 08:46 | HOSPPROG ---
Hospitalist Progress Note Assessment/Plan: 67 yo M with asthma versus more likely COPD presenting with sepsis and acute respiratory failure #Acute hypoxemic respiratory failure: Improving but still with significant O2 need. - Wean O2 as able to keep sat>90% #Acute exacerbation of obstructive lung disease: Still with significnat wheezing /prolonged expiratory phase. - Continue scheduled nebs, switched to PO steroids, PRN albuterol - Needs outpatient PFTs, patient agreeable #Acute bronchitis due to rhinovirus - Discontinue ceftriaxone (no infiltrate on cxr, pct low) - Continue azithromycin #Type 2 diabetes: New diagnosis for pt - SSI #HTN: BP slightly elevated - Resume home regimen VTE ppx: LMWH Diet: regular Code: full Dispo: remain inpatient for scheduled neb treatments, high O2 requirement. hopefully dc in next 24-48 hours Subjective: Breathing better but still significantly off baseline. Feeling stronger. Cough slightly more productive. Objective: Vital Signs Temp Pulse Resp BP Pulse Ox 36.5 C 83 20 157/90 H 99 03/20/18 07:48 03/20/18 07:48 03/20/18 07:48 03/20/18 07:48 03/20/18 07:48 Microbiology 03/19/18 00:00 Respiratory Panel (PCR) - Final Nasal, Sinus - Swab Human Rhinovirus/Enterovirus Laboratory Results 03/20/18 04:31 03/20/18 04:31 03/19/18 03/20/18 03/21/18 05:59 05:59 05:59 Intake Total 71126 1150 200 Output Total 2100 0 400 Balance 8738 -900 -200 - Physical Exam Constitutional: no apparent distress, not in pain Eyes: PERRL, anicteric sclera, EOMI Cardiovascular: regular rate and rhythym, no murmur, rub, or gallop Respiratory: other (diffuse wheezing with prolonged expiratory phase, rhonchi in bilateral bases) Skin: no rashes or abrasions, no fluctuance, no induration Neurologic: AAOx3, sensation intact bilaterally Psychiatric: interacting appropriately, not anxious, not encephalopathic, thought process linear ICD10 Worksheet Patient Problems: Problems Problem Status Onset Acute asthma exacerbation Acute Sepsis Acute
[2018-03-20] MEDS: SERTRALINE HCL 50 MG TAB PO SCH (08:49)
[2018-03-20] MEDS: PANTOPRAZOLE SODIUM 40 MG TAB PO SCH (08:49)
[2018-03-20] MEDS: predniSONE 20 MG TAB PO SCH (08:50)
[2018-03-20] MEDS: MULTIVITAMINS 1 EACH TAB PO SCH (08:50)
[2018-03-20] MEDS: CHOLECALCIFEROL VIT D3 1,000 UNITS TAB PO SCH (08:50)
[2018-03-20] MEDS: ASPIRIN EC 81 MG TAB PO SCH (08:50)
[2018-03-20] MEDS: LISINOPRIL/HCTZ 10/12.5 MG 1 EA TAB PO SCH (09:56)
[2018-03-20] MEDS: AZITHROMYCIN IV 500 MG in D5W 250 ML IV SCH (09:57)
[2018-03-20] MEDS: oxyCODONE IR 5 MG TAB PO PRN ×2 (11:49→21:24)
--- NOTE | 2018-03-20 13:16 | SOAPPROG ---
SOAP Progress Note Assessment/Plan: Assessment/plan: * Viral pneumonitis * Asthma/possible COPD-still markedly wheezy and breathless with exertion. However oxygen requirements have diminished -continue IV steroids -Continue frequent nebulized treatments * Acute respiratory failure secondary to above-improved -wean FiO2 as tolerated * Hypertension * PT/OT * Out of bed to chair * Continue ambulation Subjective: Sitting up in chair. Feels markedly improved. Requiring less oxygen. Still becomes breathless with exertion. Objective: Vital Signs Temp Pulse Resp BP Pulse Ox 36.7 C 100 16 120/71 91 L 03/20/18 11:25 03/20/18 11:25 03/20/18 11:25 03/20/18 11:25 03/20/18 11:25 Microbiology 03/19/18 00:00 Respiratory Panel (PCR) - Final Nasal, Sinus - Swab Human Rhinovirus/Enterovirus Laboratory Results 03/20/18 04:31 03/20/18 04:31 03/19/18 03/20/18 03/21/18 05:59 05:59 05:59 Intake Total 63043 1150 200 Output Total 2100 2050 400 Balance 8738 -900 -200 Physical Exam - Physical Exam General Appearance: alert, no apparent distress EENT: PERRL/EOMI, normal ENT inspection, pharynx normal, TMs normal Neck: non-tender, full range of motion, supple, normal inspection Respiratory: decreased breath sounds, wheezing (Diffuse), No respiratory distress Cardiac/Chest: normal peripheral pulses, regular rate, rhythm Peripheral Pulses: 2+: carotid (R), carotid (L), femoral (R), femoral (L), dorsalis-pedis (R), dorsalis-pedis (L) Abdomen: normal bowel sounds, non-tender, soft Male Genitalia: deferred Rectal: deferred Skin: normal color, warm/dry Extremities: normal range of motion, non-tender, normal inspection, normal capillary refill Neuro/Psych: no motor/sensory deficits, alert, normal mood/affect, oriented x 3 ICD10 Worksheet Patient Problems: Problems Problem Status Onset Acute asthma exacerbation Acute Sepsis Acute
[2018-03-20] MEDS: ATORVASTATIN CALCIUM 10 MG TAB PO SCH (21:23)
[2018-03-20] MEDS: MONTELUKAST SODIUM 10 MG TAB PO SCH (21:24)
[2018-03-20] MEDS: LORazepam 2 MG/ML INJ IVP PRN (21:24)
[2018-03-21] MEDS: IPRATROPIUM/ALBUTEROL 3 ML DEYVIAL IH SCH ×4 (05:54→20:45)
[2018-03-21] MEDS: INSULIN LISPRO 100 UNIT/ML SC SCH ×3 (09:25→18:41)
[2018-03-21] MEDS: AZITHROMYCIN IV 500 MG in D5W 250 ML IV SCH (09:47)
[2018-03-21] MEDS: SERTRALINE HCL 50 MG TAB PO SCH (09:50)
[2018-03-21] MEDS: CHOLECALCIFEROL VIT D3 1,000 UNITS TAB PO SCH (09:50)
[2018-03-21] MEDS: ENOXAPARIN 40 MG/0.4 ML SYR SC SCH (09:50)
[2018-03-21] MEDS: ASPIRIN EC 81 MG TAB PO SCH (09:51)
[2018-03-21] MEDS: LISINOPRIL/HCTZ 10/12.5 MG 1 EA TAB PO SCH (09:51)
[2018-03-21] MEDS: predniSONE 20 MG TAB PO SCH (09:51)
[2018-03-21] MEDS: PANTOPRAZOLE SODIUM 40 MG TAB PO SCH (09:51)
[2018-03-21] MEDS: oxyCODONE IR 5 MG TAB PO PRN ×2 (09:55→20:57)
[2018-03-21] MEDS: MULTIVITAMINS 1 EACH TAB PO SCH (09:56)
--- NOTE | 2018-03-21 11:14 | HOSPPROG ---
Hospitalist Progress Note Assessment/Plan: 67 yo M with asthma versus more likely COPD presenting with sepsis and acute respiratory failure #Acute hypoxemic respiratory failure: Improving, now on 2-3L NC - Wean O2 as able to keep sat>90% - Will initiate home oxygen orders #Acute exacerbation of obstructive lung disease: Continues to have significant wheezing/prolonged expiratory phase. - Space out scheduled nebs (q6->q8), continue PO steroids, PRN albuterol - Needs outpatient PFTs, patient agreeable #Acute bronchitis due to rhinovirus - Continue azithromycin - Add cough suppressnat #Type 2 diabetes: New diagnosis for pt - SSI #HTN: BP slightly elevated - Resume home regimen VTE ppx: LMWH Diet: regular Code: full Dispo: remain inpatient for scheduled neb treatments, symptomatic hypoxia. hopefully dc tomorrow AM with home O2 Subjective: Continues to feel stronger and breathing better. Coughing more. No fevers. Objective: Vital Signs Temp Pulse Resp BP Pulse Ox 36.7 C 96 18 129/81 H 96 03/21/18 07:25 03/21/18 10:37 03/21/18 10:37 03/21/18 09:51 03/21/18 10:37 Laboratory Results 03/21/18 04:23 03/20/18 04:31 03/20/18 03/21/18 03/22/18 05:59 05:59 05:59 Intake Total 1150 1000 Output Total 2050 1200 Balance -900 -200 - Physical Exam Constitutional: no apparent distress, appears nourished, not in pain Eyes: PERRL, anicteric sclera, EOMI Ears, Nose, Mouth, Throat: moist mucous membranes, hearing normal, ears appear normal, no oral mucosal ulcers Cardiovascular: no murmur, rub, or gallop, tachycardia, No JVD, No edema Respiratory: other (still with significant inspiratory and expiratory wheezing and prolonged expiratory phase) Gastrointestinal: normoactive bowel sounds, soft, non-tender abdomen, no palpable masses Neurologic: AAOx3, sensation intact bilaterally ICD10 Worksheet Patient Problems: Problems Problem Status Onset Acute asthma exacerbation Acute Sepsis Acute
--- NOTE | 2018-03-21 13:57 | SOAPPROG ---
SOAP Progress Note Assessment/Plan: Assessment/plan: * Viral pneumonitis * Asthma/possible COPD-still markedly wheezy and breathless with exertion. However oxygen requirements have diminished -continue IV steroids -Continue frequent nebulized treatments * Acute respiratory failure secondary to above-improved and on minimal oxygen -wean FiO2 as tolerated * Hypertension * PT/OT * Out of bed to chair * Continue ambulation * Disposition-likely home tomorrow Subjective: Looks and feels markedly improved. Is walking around without supplemental oxygen Objective: Vital Signs Temp Pulse Resp BP Pulse Ox 36.9 C 104 H 25 H 132/72 H 94 03/21/18 11:41 03/21/18 11:41 03/21/18 11:41 03/21/18 11:41 03/21/18 11:41 Laboratory Results 03/21/18 04:23 03/20/18 04:31 03/20/18 03/21/18 03/22/18 05:59 05:59 05:59 Intake Total 1150 1000 Output Total 2050 1200 Balance -900 -200 - Time Spent With Patient Time Spent With Patient: 25 min of time spent with patient 1/2 involved with coordination of care or counseling Physical Exam - Physical Exam General Appearance: alert EENT: PERRL/EOMI Neck: non-tender, full range of motion, supple, normal inspection Respiratory: decreased breath sounds, wheezing, No respiratory distress Cardiac/Chest: normal peripheral pulses, regular rate, rhythm Peripheral Pulses: 2+: carotid (R), carotid (L), femoral (R), femoral (L), dorsalis-pedis (R), dorsalis-pedis (L) Abdomen: normal bowel sounds, non-tender, soft Male Genitalia: deferred Rectal: deferred Skin: normal color, warm/dry Extremities: normal range of motion, non-tender, normal inspection, normal capillary refill Neuro/Psych: no motor/sensory deficits, alert, normal mood/affect, oriented x 3 ICD10 Worksheet Patient Problems: Problems Problem Status Onset Acute asthma exacerbation Acute Sepsis Acute
[2018-03-21] MEDS: guaiFENesin 600 MG TAB.ER PO PRN (20:56)
[2018-03-21] MEDS: ATORVASTATIN CALCIUM 10 MG TAB PO SCH (20:57)
[2018-03-21] MEDS: MONTELUKAST SODIUM 10 MG TAB PO SCH (20:57)
[2018-03-22] MEDS: IPRATROPIUM/ALBUTEROL 3 ML DEYVIAL IH SCH ×2 (05:55→13:43)
[2018-03-22] MEDS: ENOXAPARIN 40 MG/0.4 ML SYR SC SCH (08:58)
[2018-03-22] MEDS: INSULIN LISPRO 100 UNIT/ML SC SCH ×2 (09:13→13:09)
[2018-03-22] MEDS: ALBUTEROL 3 ML DEYVIAL IH PRN (09:16)
[2018-03-22] MEDS: AZITHROMYCIN IV 500 MG in D5W 250 ML IV SCH (10:13)
[2018-03-22] MEDS: CHOLECALCIFEROL VIT D3 1,000 UNITS TAB PO SCH (10:14)
[2018-03-22] MEDS: LISINOPRIL/HCTZ 10/12.5 MG 1 EA TAB PO SCH (10:14)
[2018-03-22] MEDS: predniSONE 20 MG TAB PO SCH (10:15)
[2018-03-22] MEDS: ASPIRIN EC 81 MG TAB PO SCH (10:15)
[2018-03-22] MEDS: PANTOPRAZOLE SODIUM 40 MG TAB PO SCH (10:15)
[2018-03-22] MEDS: MULTIVITAMINS 1 EACH TAB PO SCH (10:15)
[2018-03-22] MEDS: SERTRALINE HCL 50 MG TAB PO SCH (10:15)
[2018-03-22] MEDS: guaiFENesin 600 MG TAB.ER PO PRN (10:33)
--- NOTE | 2018-03-22 12:03 | PDHOMEO2F ---
Home Oxygen Face to Face Home Orders: I certify that a physician or a nurse practitioner or physician's assistant professor of theater has had a [id number] encounter with this patient on the date of this order due to the diagnosis listed, which relates to the primary reason the patient requires home oxygen. Alternative treatments have been tried, or considered, and deemed ineffective. It is anticipated that supplemental oxygen will result in improvement with treatment. Home oxygen qualifying diagnosis: acute hypoxemia due to exacerbation of obstructive lung disease SpO2 on room air (%): 84 Frequency of home oxygen needed: with activity, during sleep Home oxygen liters per minute: 2 Home oxygen delivery device: nasal cannula Concentrator: Yes E-tanks for mobility and back up: Yes If ordering portable O2, is the patient mobile in the home?: Yes I certify that, based on these findings, the home oxygen is medically necessary for this patient for the following length of time. Length of time home oxygen needed: 3 months
[2018-03-22 12:32] VITALS: BP 134/72
--- NOTE | 2018-03-22 15:27 | PDDCSUM ---
Discharge Summary Discharge Summary: Date of Admission: 03/18/2018 Date of Discharge: 03/22/2018 Consultants: pulmonology Discharge Diagnoses: 1. Acute hypoxemic respiratory failure 2. Acute exacerbation of obstructive lung disease 3. Acute bronchitis due to rhinovirus 4. Type 2 diabetes 5. Hypertension 6. FILIBERTO Brief Hospital Course by Problem: 67 yo M with asthma versus more likely COPD presenting with sepsis and acute respiratory failure, initially managed in ICU. 1. Acute hypoxemic respiratory failure: Discharge on 2L via NC with exertion and while sleeping. 2. Acute exacerbation of obstructive lung disease: Reports h/o asthma but given his extensive smoking history he more likely has emphysema. Discharged to complete steroid taper in addition to azithromycin. Continued his home inhalers. Needs outpatient PFTs, plans to follow up with Dr Sanchez. 3. Acute bronchitis due to rhinovirus: Supportive care. 4. Type 2 diabetes: New diagnosis for pt, A1c 7.6%. Discharged on metformin, discussed side effects. F/u with PCP. 5. HTN: BP controlled, continued home regimen. 6. FILIBERTO: He has a CPAP. Medications: Please refer to EMR. Additions this hospitalization include azithromycin, prednisone, metformin, refill on albuterol. Follow Up Plan: 1. PCP clinic visit to address diabetes, ensure respiratory sxs improving in 1 week 2[address] Establish with [address] Sanchez, get formal PFTs, optimize inhaler regimen 3. Assess need for ongoing oxygen Physical Exam: Vitals reviewed. Alert and oriented. Heart regular. Lungs still with prolonged expiratory phase but improved wheezing throughout. Abdomen soft, nontender. No LE edema.
== END 2018-03-22 14:01 | disposition home or self-care (01) | DRG 871 ==
LOC: CED 17:01 → CEDHOLD 18:14 → F2N 20:36 → F3N 03-19 14:30 → F3E 03-21 15:48
PROVIDERS: ADMIT Internal Medicine; ATTEND Internal Medicine
DX: A41.9 Sepsis, unspecified organism (principal); J96.01 Acute respiratory failure with hypoxia; J44.1 Chronic obstructive pulmonary disease with (acute) exacerbation; J20.6 Acute bronchitis due to rhinovirus; E11.9 Type 2 diabetes mellitus without complications; I10 Essential (primary) hypertension; G47.33 Obstructive sleep apnea (adult) (pediatric); Z87.891 Personal history of nicotine dependence; Z88.0 Allergy status to penicillin
CPT/HCPCS: 71045-PO; 80053-PO; 83605-PO; 84484-PO; 96365; J0456; J0696; J1170; J1650; J1815; J2060; J2930; J7512; J7613

== ENCOUNTER → 2018-05-13 | Outpatient (CLI) | payer OTHER, MEDICARE | LOC: CIMAGING 11:23 | PROVIDERS: ATTEND Internal Medicine Pulmonary Disease | DX: I51.7 Cardiomegaly (principal); M48.54XA Collapsed vertebra, not elsewhere classified, thoracic region, initial encounter for fracture; J45.909 Unspecified asthma, uncomplicated; Z87.891 Personal history of nicotine dependence | CPT/HCPCS: 71046-PO ==